=== PATIENT | female | born 1960 | race Caucasian/White ===

== ENCOUNTER 2019-03-07 01:30 | Outpatient (CLI) | payer BC, SELFPAY ==
[2019-03-07 10:07] LABS: Anion Gap 10.4 mmol/L (3-11); BUN 19 mg/dL (7-18); CO2 27.6 mmol/L (21.0-32.0); CREATININE 0.71 mg/dL (0.55-1.02); Calcium 8.5 mg/dL (8.5-10.1); Calculated LDL 118 mg/dL; Chloride 107 mmol/L (98-107); Cholesterol 193 mg/dL (50-200); Glucose 88 mg/dL (70-100); HDL Cholesterol 68 mg/dL (40-60); Potassium 3.9 mmol/L (3.5-5.1); Sodium 145 mmol/L (136-145); Triglyceride 37 mg/dL (30-150)
== END 2019-03-07 01:50 ==
PROVIDERS: PCP Family Medicine; Visit Provider Family Medicine
DX: Z00.00 Encounter for general adult medical examination without abnormal findings (principal); Z13.220 Encounter for screening for lipoid disorders; Z13.228 Encounter for screening for other metabolic disorders
CPT/HCPCS: 36415; 80048; 80061; 83721

== ENCOUNTER 2019-04-04 00:23 | Outpatient (CLI) | payer BC, SELFPAY ==
--- NOTE | 2019-04-04 07:31 | DI.MAMMO_ITS ---
SYMPTOM/DIAGNOSIS: SCREENING Z12.31 BILATERAL SCREENING MAMMOGRAM: Mammograms were interpreted according to the usual protocol including computer analysis with CAD system, tomosynthesis and C view imaging. Comparison is made with exams from 2013 through 2015. The breasts are composed of heterogeneously dense fibroglandular densities, breast density category C. No suspicious masses or suspicious microcalcifications are seen. There has been no significant change. IMPRESSION: Category 1, negative mammogram. Yearly screening mammography is recommended. Breast density category C. SA ASSESSMENT OF FINDINGS: Negative. Category 1. Patient will receive a letter notifying them of these results. Bi-RADS category C. The breasts are heterogeneously dense, which may obscure small masses.
== END 2019-04-04 00:43 ==
PROVIDERS: PCP Family Medicine; Visit Provider Family Medicine
DX: Z12.31 Encounter for screening mammogram for malignant neoplasm of breast (principal)
CPT/HCPCS: 77063; 77067

== ENCOUNTER 2020-04-08 02:13 | Outpatient (CLI) | payer BC, SELFPAY ==
--- NOTE | 2020-04-08 06:45 | DI.MAMMO_ITS ---
EXAM: MG MAMMO SCREENING CLINICAL HISTORY: screening, Z12.39 TECHNIQUE: Bilateral full field digital CC and MLO mammographic images were obtained with 3D tomosyn thesis and utilizing computer aided detection (CAD). COMPARISON: Available for comparison. FINDINGS: Masses/Architectural Distortion: None seen. Microcalcifications: No suspicious pleomorphic-type are seen. Skin Thickening/Nipple Retraction: None. IMPRESSION: 1. No significant interval change with no specific features of malignancy noted. 2. Unless there is more urgent need, screening mammography is recommended, as per [place] [employer] guidelines. BI-RADS Category 1 - Negative Breast Density - Category C - Heterogeneously dense The mammogram demonstrates the patient's breast tissue is dense. Dense breast tissue is very common a nd is not abnormal but dense breast tissue can make it harder to find cancer on a mammogram. Also, de nse breast tissue may increase their breast cancer risk. This information about the result of the [facility] mogram report was provided to the patient to raise their awareness. Use this report when you speak wi th the patient about their risks for breast cancer, which includes their family history. At that time , you may recommend for more screening tests (Ultrasound or MRI) as they might be useful based on the ir risk. A negative radiographic report should not delay biopsy if a dominant or clinically suspicious mass is present. Up to ten percent of cancers are not identified on mammography. A negative report may reinforce clinical impression. Adenosis and dense breasts may obscure an underlying neoplasm. False positive reports average 6 to 10%. Patient will receive a letter notifying them of these results.
== END 2020-04-08 02:33 ==
PROVIDERS: PCP Family Medicine; Visit Provider Family Medicine
DX: Z12.31 Encounter for screening mammogram for malignant neoplasm of breast (principal); R92.2 Inconclusive mammogram
CPT/HCPCS: 77063; 77067

== ENCOUNTER 2020-11-13 17:55 | Outpatient (CLI) | payer OTHER, SELFPAY ==
--- NOTE | 2020-11-13 13:45 | DI.RAD_ITS ---
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 TECHNIQUE: 2D digital imaging was performed. COMPARISON: No exams were available for comparison FINDINGS: BONES: No acute fracture is present. No bony destructive lesion is seen. Bones appear osteopenic. En thesophyte at the Achilles insertion on the calcaneus. JOINTS: No dislocation present. No significant degenerative changes. SOFT TISSUE: Normal. No plantar fascial calcification or other soft tissue calcification is seen. IMPRESSION: Spurring at the Achilles insertion. No evidence of plantar fascial calcification or plantar calcanea l spur. DATA REPOSITORY: RADIATION DOSE DELIVERED:
== END 2020-11-13 18:15 ==
PROVIDERS: PCP Nurse Practitioner Family; Visit Provider Emergency Medicine
DX: M79.671 Pain in right foot (principal); M72.2 Plantar fascial fibromatosis; M77.31 Calcaneal spur, right foot; M85.88 Other specified disorders of bone density and structure, other site
CPT/HCPCS: 73630

== ENCOUNTER 2021-02-19 02:13 | Outpatient (CLI) | payer OTHER, SELFPAY ==
--- NOTE | 2021-02-19 09:45 | DI.DEXA_ITS ---
Exam(s) XR DEXA BONE DENSITY W/WO MINDY EXAM: XR DEXA BONE DENSITY W/WO MINDY CLINICAL HISTORY: osteopenia,M85.80 TECHNIQUE: Routine DEXA evaluation of the lumbar spine, hip, or forearm. COMPARISON: No exams were available for comparison FINDINGS: Performed on a Hologic unit. Lateral image: No compression fracture evident. Lumbar Spine total T-score: -2.3 Hip total T-score:-1.2 Independent reading at the femoral neck yields a T-score of minus 1.3 Forearm total T-score: -3.2 IMPRESSION: Bone mineral density measures in the osteopenia range, bordering on osteoporosis. Fracture risk is m oderate-high. Note: Any spine fracture indicates 5x risk for subsequent spine fracture and 2x risk for subsequent h ip fracture. World Health Organization criteria for BMD interpretation classify patients: Normal...... T- Score at or above -1.0 Osteopenic... T- Score between -1.0 and -2.5 Osteoporosis... T-Score at or below -2.5
== END 2021-02-19 02:33 ==
PROVIDERS: PCP Nurse Practitioner Family; Visit Provider Emergency Medicine
DX: M85.80 Other specified disorders of bone density and structure, unspecified site (principal)
CPT/HCPCS: 77080

== ENCOUNTER 2021-03-12 09:19 | Outpatient (CLI) | payer OTHER, SELFPAY ==
--- NOTE | 2021-03-12 14:14 | DI.US_ITS ---
APPROVED REPORT EXAM: Comprehensive 2D, Doppler, and color-flow Echocardiogram Patient Location: Out-Patient Engagement Manager: Pamela Cope RDCS (AE) Indications: Bicuspid aortic valve Other Information Study Quality: Adequate Conclusion Left Ventricle : The left ventricle is normal size. The left ventricular systolic function is normal. The left ventricular ejection fraction is within the normal range. There is normal LV segmental wall motion. The left ventricular diastolic function is normal. LVEF is 60%. Right Ventricle : Right ventricle is not well visualized. Right ventricle is grossly normal in size. Right ventricular systolic function is grossly normal. The RVSP is 14.9mmHg. Aortic Valve : Aortic valve is not well visualized but known to be bicuspid. No aortic regurgitation is present. There is no aortic valvular stenosis. Great Vessels : The aortic root is normal in size. The ascending aorta is mildly dilated. Aortic arch is normal in caliber. IVC is normal in size and collapses >50% with inspiration. Please see remainder of study for further details. Wall motion Left Ventricle The left ventricle is normal size. The left ventricular systolic function is normal. The left ventric ular ejection fraction is within the normal range. There is normal left ventricular wall thickness. T here is normal LV segmental wall motion. The left ventricular diastolic function is normal. There is no ventricular septal defect visualized. LVEF is 60%. Right Ventricle Right ventricle is not well visualized. Right ventricle is grossly normal in size. Right ventricular systolic function is grossly normal. The RVSP is 14.9mmHg. Atria The left atrium size is normal. The right atrium size is normal. The interatrial septum is intact wit h no evidence for an atrial septal defect. Aortic Valve Aortic valve is not well visualized but known to be bicuspid. There is no aortic valvular stenosis. N o aortic regurgitation is present. Mitral Valve Mild mitral annular calcification. No evidence of mitral valve stenosis. Trace mitral regurgitation. Tricuspid Valve The tricuspid valve is normal in structure. There is no tricuspid valve stenosis. Trace tricuspid reg urgitation. Pulmonic Valve The pulmonary valve is normal in structure. There is no pulmonic valvular stenosis. There is no pulmo jany valvular regurgitation. Great Vessels The aortic root is normal in size. The ascending aorta is mildly dilated. Aortic arch is normal in ca liber. IVC is normal in size and collapses >50% with inspiration. Pericardium There is no pericardial effusion. 2D Dimensions IVSD d PLAX 0.85 cm F: 0.6-1.0 LV Vol A2C d MOD 77.9 mL LVPW d PLAX 0.85 cm F: 0.6 - 1.0 LV Vol A4C d MOD 73.2 mL LVID d PLAX 4.46 cm F: 3.8 - 5.2 LA vol/ BSA A4C s A-L 12.4 mL/m2 LVDs 3.10 cm F: 2.2 - 3.5 LA Area A4C s MOD 10.60 cm2 Ao Root d 3.14 cm F: 2.7 - 3.3 LV EF A4C MOD 60.4 % RA Area A4C 8.95 cm2 LV EF A2C MOD 60.1 % RA Vol/ BSA A4C s A-L 10.9 mL/m2 LV EF Biplane MOD 60.7 % Ao Asc Diam d 3.66 cm F: 2.3 - 3.1 SV 46.21 mL LV EF Teichholz 57.0 % SV Index 27.01 mL/m2 LVEF (Burns's) 60.70 % F: 54 - 74 LV Volume 60.31 mL F: 46 - 106 LV Volume Index 35.26 mL/m2 F: 29 - 61 LV Vol Biplane MOD 76.1 mL FS 29.70 % M-Mode TAPSE 1.95 cm (M/F) >1.7 LV Diastology MV E' medial 0.089 (>0.07 m/s) E/A Ratio 1.1 LV E/e MED 8.45 (<14) MV E Vmax 0.75 (0.4-1.3 m/s) MV E' lateral 0.100 (>0.1 m/s) MV A Vmax 0.70 (0.4-1.3 m/s) LV E/e LAT 7.50 (<14) MV E/A Ratio 1.01 MV E/E' medial 8.46 MV E/E' lateral 7.50 Aortic Valve LVOT Area 2.88 cm2 AoV Area Vmax 1.34 cm2 LVOT Vmax 0.86 m/s AoV Area/ BSA (Vmax) 0.78 cm2/m2 LVOT Mean Bobby. 0.66 m/s MEY Mean Bobby. 1.24 cm2 LVOT Peak Grad 2.9 mmHg MEY Mean Bobby. Index 0.73 cm2/m2 LVOT Mean Grad 1.9 mmHg LVOT VTI 0.167 m LVOT Diam s 1.90 cm AoV Vmax 1.85 m/s Velocity Ratio 0.46 AoV Mean Bobby. 1.53 m/s AoV Peak Grad 13.6 mmHg LVOT SV 48.12 mL AoV Mean Grad 9.7 mmHg AoV VTI 0.394 m AoV Area VTI 1.22 cm2 AoV Area/ BSA (VTI) 0.71 cm/m2 Mitral Valve MV DT 218 (160-240 msec) MV PHT 63 msec MV Area PHT 3.48 cm2 MV VTI 0.302 m MV Area VTI 1.59 (4.0-6.0 cm2) Pulmonary Valve PV Vmax 0.96 (0.5-1.5 m/s) RVOT Peak Gr. 2.57 mmHg PV Peak Grad 3.7 mmHg RVOT Mean Gr. 1.20 mmHg PV Mean Grad 1.9 mmHg RVOT VTI 0.180 m PV VTI 0.190 m RVOT Vmax 0.80 m/s Tricuspid Valve TR Peak Grad 11.8 mmHg TR Vmax 1.72 m/s RA Pressure 3.00 mmHg RVSP (TR) 14.9 mmHg
== END 2021-03-12 09:39 ==
PROVIDERS: PCP Nurse Practitioner Family; Visit Provider Nurse Practitioner Family
DX: Q23.1 Congenital insufficiency of aortic valve (principal); I77.810 Thoracic aortic ectasia
CPT/HCPCS: 93306

== ENCOUNTER 2021-03-13 04:43 | Outpatient (CLI) | payer OTHER, SELFPAY ==
[2021-03-13 07:59] LABS: Hemoglobin A1C 5.5 % (<5.7)
[2021-03-13 08:55] LABS: Anion Gap 8.4 mmol/L (3-11); BUN 19 mg/dL (7-18); CO2 28.6 mmol/L (21.0-32.0); CREATININE 0.7 mg/dL (0.55-1.02); Calcium 8.8 mg/dL (8.5-10.1); Calculated LDL 128 mg/dL (<100); Chloride 106 mmol/L (98-107); Cholesterol 203 mg/dL (<200); Glucose 88 mg/dL (74-106); HDL Cholesterol 57 mg/dL (40-60); Potassium 3.9 mmol/L (3.5-5.1); Sodium 143 mmol/L (136-145); Triglyceride 90 mg/dL (<150)
[2021-03-13 09:17] LABS: Vitamin D 25 Total 25.9 ng/mL (30-100)
== END 2021-03-13 04:44 | disposition home or self-care (01) ==
LOC: LBO 04:43
PROVIDERS: PCP Nurse Practitioner Family; Visit Provider Nurse Practitioner Family
DX: E78.5 Hyperlipidemia, unspecified (principal); M85.88 Other specified disorders of bone density and structure, other site; R79.89 Other specified abnormal findings of blood chemistry
CPT/HCPCS: 36415; 80048; 80061; 82306; 83036

== ENCOUNTER 2021-03-31 11:06 | Outpatient (CLI) | payer OTHER, SELFPAY ==
--- NOTE | 2021-03-31 11:00 | RT.EKG_ITS ---
APPROVED REPORT Exam: Resting ECG Reason for Exam: bicuspid aortic valve Patient Location: O HR:74 bpm ECG Measurements Heart Rate 74 AXIS WV 164 P 35 QRSd 100 QRS 38 QT 387 T 15 QTc 430 Conclusion Sinus rhythm...normal P axis, V-rate 50- 99 Normal Electrocardiogram
== END 2021-03-31 11:07 | disposition home or self-care (01) ==
LOC: DI.CARD 11:09
PROVIDERS: PCP Nurse Practitioner Family; Visit Provider Internal Medicine Cardiovascular Disease
DX: Q23.1 Congenital insufficiency of aortic valve (principal)
CPT/HCPCS: 93010

== ENCOUNTER 2021-04-09 01:56 | Outpatient (CLI) | payer OTHER, SELFPAY ==
--- NOTE | 2021-04-09 06:45 | DI.MAMMO_ITS ---
Exam(s) MAMMO SCREENING EXAM: MAMMO SCREENING CLINICAL HISTORY: screening,z12.39 TECHNIQUE: Bilateral full field digital CC and MLO mammographic images were obtained with 3D tomosyn thesis and utilizing computer aided detection (CAD). COMPARISON: Available for comparison. FINDINGS: Masses/Architectural Distortion: None seen. Microcalcifications: No suspicious pleomorphic-type are seen. Skin Thickening/Nipple Retraction: None. IMPRESSION: 1. No significant interval change with no specific features of malignancy noted. 2. Unless there is more urgent need, screening mammography is recommended, as per [place] [employer] guidelines. BI-RADS Category 1 - Negative Breast Density - Category B - Scattered areas of fibroglandular density Breast density category C or D implies that the patient has dense breast tissue. Dense breast tissue is very common and is not abnormal but dense breast tissue can make it harder to find cancer on a ma mmogram. Also, dense breast tissue may increase their breast cancer risk. This information about the result of the mammogram report was provided to the patient to raise their awareness. Use this report when you speak with the patient about their risks for breast cancer, which includes their family hist ory. At that time, you may recommend for more screening tests (Ultrasound or MRI) as they might be us eful based on their risk. A negative radiographic report should not delay biopsy if a dominant or clinically suspicious mass is present. Up to ten percent of cancers are not identified on mammography. A negative report may reinforce clinical impression. Adenosis and dense breasts may obscure an underlying neoplasm. False positive reports average 6 to 10%. Patient will receive a letter notifying them of these results.
== END 2021-04-09 02:16 ==
PROVIDERS: PCP Nurse Practitioner Family; Visit Provider Nurse Practitioner Family
DX: Z12.31 Encounter for screening mammogram for malignant neoplasm of breast (principal)
CPT/HCPCS: 77063; 77067

== ENCOUNTER → 2022-04-10 00:24 | Outpatient (CLI) | payer OTHER, SELFPAY ==
--- OUTSIDE RECORDS SUMMARY | 2022-04-10 00:26 | XMS_ITS | Encounter Summary ---
:1960 Author Organization [place] [address] Care Team Providers Name Role Phone Pooja Quevedo MD Primary Care Provider Reason for Visit Reason Comments Skin Check Encounter Details Date Type Department Care Team Description 09/23/2011 Office Visit Dermatology Pedro Latif, Family history of malignant melanoma (Primary Dx); [address] [place], [place] DERMATOLOGY [address] [place] [address] [phone] (Wo rk) Social History Tobacco Use Types Packs/Day Years Used Date Never Smoker Sex Assigned at Date Recorded Not on file documented as of this encounter Progress Notes Pedro Latif MD - 09/23/2011 5:29 PM EST Problem: 1. Mole check. 2. Family history of superficial melanoma recently in her father who is alive and well. 3. History of BCCa(s) in both mother and father. Kely follows up after last being seen in 2006. She has been doing well. Her father was recently diagnosed with melanoma and so she is referred today for another skin check. I last saw her in 08/2006. The patient is of almost purely [place] ethnic descent but does tend to burn relatively easily in the summer months. Physical examination reveals a brown eyed, brown haired 51-year-old woman who has benign appearing ephelides and solar lentigos over the upper shoulders. She has several compound versus intradermal nevi one on the left flank. She has otherwise mostly junctional melanocytic nevi over the arms and legs. Examination of the head, neck, chest, back, hands, arms, forearms, thighs and calves is otherwise benign. Assessment & Plan: Benign skin examination. a. Discussed recognition of melanoma with patient. b. Reinforced sun avoidance precautions. c. Patient given informational brochure on skin cancer and discussed the three basic types of skin cancer. d. RTC on a p.r.n. basis. Copy: Pooja Quevedo MD documented in this encounter Plan of Treatment Not on filedocumented as of this encounter Visit Diagnoses Diagnosis Family history of malignant melanoma - P rimary Family history of other specified malign ant neoplasm Nevus Benign neoplasm of skin, site unspecifie d documented in this encounter Care Teams Cake Inspector Relationship Specialty Start Date End Date Pooja Quevedo MD PCP - General 07/01/10 11/14/17 [address] [place] [address] documented as of this encounter
--- OUTSIDE RECORDS SUMMARY | 2022-04-10 00:26 | XMS_ITS | Clinical Summary ---
:1960 Author Organization [facility] [place] [address] Care Team Providers Name Role Phone Julius King MD Primary Care Provider Allergies No known active allergies Medications Medication Sig Dispensed Refills Start Date End Date Status CIS Free Text Med - Calcium + D 0 07/07/20 06 Active multivitamin (THERAGRAN) tablet 0 07/07/20 06 Active ascorbic acid (VITAMIN C) 500 mg 0 006 Active tablet Active Problems Problem Noted Date Family history of malignant melanoma 09/23/2011 [place] 09/23/2011 Social History Tobacco Use Types Packs/Day Years Used Date Never Smoker Smokeless Tobacco: Never Used Sex Assigned at Date Recorded Not on file Plan of Treatment Health Maintenance Due Date Last Done Comments Covid-19 Vaccine (#1) 1964 HIV screen 1977 Hepatitis C Screening 1977 Tdap adult 1978 Tetanus vaccine 1978 HPV test 1989 PAP Smear 1989 Breast Cancer Share Decision Needed 1999 Colonoscopy 2004 Breast Cancer screening 2009 Zoster vaccine (1 of 2) 2009 Advance Directive 2014 Influenza (Flu) vaccine (1 of 1 - Influenza standard 04/09/2022 series) Advance Directives Documents on File Type Date Recorded Patient Proc Tech Explanati on Advance Directives and Living 10/07/2010 4:44 PM Will Care Teams Plsql Developer Relationship Specialty Start Date End Date Julius King MD PCP - General Family Medicine 11/15/[address] [place] [address]
--- OUTSIDE RECORDS SUMMARY | 2022-04-10 00:26 | XMS_ITS | Encounter Summary ---
:1960 Author Organization [facility] [place] [address] Care Team Providers Name Role Phone Julius King MD Primary Care Provider Reason for Visit Reason Comments Skin Check Encounter Details Date Type Department Care Team Description 11/15/2017 Office Visit Dermatology at [facility] Pedro Latif MD [address] [address] DERMATOLOGY [phone] [place], [place] [address] (Wo rk) Social History Tobacco Use Types Packs/Day Years Used Date Never Smoker Smokeless Tobacco: Never Used Sex Assigned at Date Recorded Not on file documented as of this encounter Progress Notes Pedro Latif MD - 11/15/2017 4:30 PM EDT Problem: Right medial calf lesion Kely is a 57-year-old woman who is referred today in consultation by Sushila Silver. For an extended period of time she has had a pigmented mole on her right medial calf. Apparently in recent months it is started to expand superiorly and inferiorly within nonpigmented erythematous advancing border. This is not bled or scabbed or crusted. Has not been sore. It is not pruritic I was contacted by Sushila Silver who sent me photos of this lesion, and so she referred in consultation for further evaluation and treatment. Physical examination reveals a 12 x 16 mm plaque with central pigmentation and a superiorly erythematous raised section on her right medial calf. There is no crust or scab. Patient is very fair skin with numerous freckles but otherwise has a benign examination of her face her back upper chest and hands arms forearms thighs and calves is benign Assessment and plan: Changing nevus right medial calf 1. Differential includes possible medical malignant melanoma in situ, superficial basal versus squamous cell carcinomas, possibly a seborrheic keratosis 2. Today after obtaining informed consent site was anesthetized and removed in its entirety with shave biopsy superficially, and submitted for pathologic analysis 3. Triple antibiotic ointment and bandage placed wound care supplies given will notify patient biopsy results when these are available in the next 4-5 days 4. Further treatment to be predicated on biopsy results Cc: NICKIE Guillen MD documented in this encounter Plan of Treatment Not on filedocumented as of this encounter Visit Diagnoses Diagnosis Nevus Benign neoplasm of skin, site unspecifie d documented in this encounter Care Teams Drafting Technician Relationship Specialty Start Date End Date Julius King MD PCP - General Family Medicine 11/15/[address] [place] [address] [address] [place] [address] documented as of this encounter
--- NOTE | 2022-04-10 08:30 | DI.MAMMO_ITS ---
Exam(s) MAMMO SCREENING EXAM: MAMMO SCREENING CLINICAL HISTORY: screening, Z12.39 TECHNIQUE: Mammograms were interpreted according to the usual protocol including computer analysis w Universal [employer] CAD system, tomosynthesis and C-view imaging. COMPARISON: FINDINGS: The breasts are of moderate density with fairly symmetrical distribution of fibroglandular tissue. N o dominant mass or clumped microcalcification is identified in either breast. The current examinatio n is compared with previous examinations including April 2021 and there has been no gross interva l change appearance comparison with the prior studies. IMPRESSION: No specific evidence of malignancy at this time. Routine screening examinations are suggested at yea rly intervals due to the family history of breast carcinoma. BI-RADS Category 1 - Negative Breast Density - Category B - Scattered areas of fibroglandular density
== END ==
PROVIDERS: PCP Nurse Practitioner Family; Visit Provider Nurse Practitioner
DX: Z12.31 Encounter for screening mammogram for malignant neoplasm of breast (principal); Z80.3 Family history of malignant neoplasm of breast
CPT/HCPCS: 77063; 77067

== ENCOUNTER 2023-03-12 11:49 | Outpatient (CLI) | payer OTHER, SELFPAY ==
--- NOTE | 2023-03-12 | DI.CT_ITS ---
Exam(s) CT ABDOMEN PELVIS W EXAM: CT ABDOMEN PELVIS W CLINICAL HISTORY: LLQ ABD PAIN, R10.32, ? DIVERTICULITIS. TECHNIQUE: Imaging Protocol: Axial computed tomography images with coronal and sagittal reformatted images were created and reviewed CONTRAST MATERIAL: Intravenous: Omnipaque-350 100cc Oral: None COMPARISON: No exams were available for comparison FINDINGS: VISUALIZED LUNG BASES: No nodules nor pleural effusions evident. ABDOMEN: There is no ascites. LIVER: There are no focal hepatic lesions evident. No dilated intrahepatic ducts. GALLBLADDER/BILIARY: There are gallstones evident in the gallbladder lumen. Also some hyperdense maxwell e. The gallbladder is not distended and does not appear to be edematous. CBD is not dilated. PANCREAS: No evidence of pancreatic mass nor dilatation of the pancreatic duct. SPLEEN: Spleen is not enlarged. No obvious intrasplenic lesions. Splenic and portal veins are paten t. ADRENALS: There are no significant adrenal masses. KIDNEYS:There are multiple benign cysts in both kidneys. The largest is in the right kidney and blair ures 2 cm. No solid renal masses. No calculi nor hydronephrosis.. ABDOMINAL AORTA: Abdominal aorta is not enlarged. LYMPH NODES:There is no retroperitoneal nor paraaortic adenopathy. ABDOMINAL WALL: No evidence of significant anterior abdominal wall nor inguinal hernia. GI: There is evidence of acute diverticulitis in the upper sigmoid. The culprit diverticulum is iden tified and is on the medial wall of the colon at this level. There is circumferential mural thickeni ng at this level and streaking in the adjacent fat. There is no abscess evident at this time. There is no fluid in the dependent aspect of the pelvis. There is no gas in the portal venous system. No evidence of intrahepatic abscess. PELVIS: GI: No evidence of appendicitis.Acute diverticulitis as described above. LYMPH NODES: There is no intrapelvic nor inguinal adenopathy. REPRODUCTIVE: Uterus is surgically absent. No abnormal adnexal masses. URINARY BLADDER: Unremarkable. Also no intraluminal gas to suggest fistulous communication to the si gmoid. OSSEOUS: No fractures and no significant osseous lesions. Degenerative anterolisthesis L4 upon L5. Also moderate disc space narrowing at this level. IMPRESSION: 1. Findings are consistent with significant acute sigmoid diverticulitis. There is abundant bowel ed jan at this level as well as perisigmoid streaking-phlegmonous. There is no abscess evident at this time. 2. Cholelithiasis incidentally noted. No evidence of acute cholecystitis. Biliary tree is not dilat ed. Report called by myself to referring physician 03/12/2023 3:50 p.m. RADIATION DOSE DELIVERED: 667.04mGy.cm Total DLP DATA REPOSITORY: All CT scans at this facility are submitted to the National Radiology Data Registry (NRDR) Dose Index Registry (DIR) with the [employer] (ACR). RADIATION OPTIMIZATION: All CT scans at this facility use at least one of these dose optimization te chniques: automated exposure control; mA and/or kV adjustment per patient size (includes targeted exa ms where dose is matched to clinical indication); or iterative reconstruction.
[2023-03-12 11:34] LABS: Abs Immature Grans 0.05 10^3/uL (0.0-0.06); Absolute Basophil Count 0.03 10^3/uL (0.0-0.2); Absolute Eosinophil Count 0.17 10^3/uL (0.0-0.7); Absolute Lymphocyte Count 2.37 10^3/uL (1.2-3.4); Absolute Monocyte Count 0.93 10^3/uL (0.1-0.8); Absolute Neutrophil Count 7.95 10^3/uL (1.2-6.7); Basophils % 0.3; Eosinophils % 1.5; HCT 40.4 % (36.0-46.0); HGB 13.1 g/dL (11.2-15.7); Immature Grans % 0.4; Lymphocytes % 20.6; MCH 28.5 pg (27.0-33.0); MCHC 32.4 % (32.0-36.0); MCV 88 fL (80-95); MPV 8.7 fL (8.0-11.0); Monocytes % 8.1; Neutrophils % 69.1; Platelet Count 190 10^3/uL (130-400); RBC 4.59 10^6/uL (3.93-5.22); RDW 12.9 % (11.7-14.6); RDW-SD 41.8 fL
[2023-03-12 12:11] LABS: ALT 21 U/L (14-59); AST 14 U/L (15-37); Albumin 3.6 g/dL (3.4-5.0); Alkaline Phosphatase 115 U/L (46-116); Anion Gap 9.7 mmol/L (3-11); BUN 16 mg/dL (7-18); Bilirubin, Total 1.3 mg/dL (0.2-1.0); CO2 28.3 mmol/L (21.0-32.0); CREATININE 0.9 mg/dL (0.55-1.02); Calcium 9.3 mg/dL (8.5-10.1); Chloride 101 mmol/L (98-107); Estimated GFR 71.83 (mL/min/1.73m2); Glucose 90 mg/dL (74-106); Potassium 4.2 mmol/L (3.5-5.1); Sodium 139 mmol/L (136-145); Total Protein 7.8 g/dL (6.4-8.2)
[2023-03-12] MEDS: Barium Sulfate 2% W/V-Berry Smoothie 450 ML BTL 900 ML PO (12:11)
[2023-03-12] MEDS: Normal Saline - Diluent 50 ML VIAL IJ (14:30)
[2023-03-12] MEDS: Omnipaque 350 MG/ML 500 ML BTL-Imaging package IJ (14:30)
[2023-03-12] MEDS: Normal Saline Flush 10 ML SYR IVP (14:32)
== END 2023-03-12 11:50 | disposition home or self-care (01) ==
LOC: LBO 11:51
PROVIDERS: PCP Nurse Practitioner Family; Visit Provider Physician Assistant Medical
DX: R10.32 Left lower quadrant pain (principal)
CPT/HCPCS: 36415; 80053; 74177; 85025

== ENCOUNTER 2023-03-12 12:53 | Outpatient (REF) | payer OTHER, SELFPAY | END 2023-03-12 12:54 | disposition home or self-care (01) | LOC: LBN 12:53 | PROVIDERS: PCP Nurse Practitioner Family; Visit Provider Physician Assistant Medical | DX: R10.9 Unspecified abdominal pain (principal); R82.998 Other abnormal findings in urine | CPT/HCPCS: 87086 ==

== ENCOUNTER → 2023-05-18 01:10 | Outpatient (CLI) | payer OTHER, SELFPAY ==
--- NOTE | 2023-05-18 07:45 | DI.DEXA_ITS ---
Exam(s) XR DEXA BONE DENSITY W/WO MINDY EXAM: XR DEXA BONE DENSITY W/WO MINDY CLINICAL HISTORY: osteopenia,screening for osteoporosis in postmenopausal woman,z78.0 TECHNIQUE: COMPARISON: CR XR DEXA BONE DENSITY W/WO MINDY from 02/19/2021 FINDINGS: Lateral Spine Image: Unremarkable. No compression deformities identified. Left hip: Total T-Score: -1.0. This compares to -1.2 on the prior examination. Total Z-Score: 0.1 T- and Z-scores: Within normal limits. Lumbar Spine: Total T-Score: -2.4. This compares to -2.5 on the prior examination. Total Z-Score: -0.7 T- and Z-scores: Findings are consistent with osteopenia. Osteoporosis is seen in the L1 and L2 vert ebral bodies. IMPRESSION: Osteoporosis in the L1 and L2 vertebral bodies.
--- NOTE | 2023-05-18 07:45 | DI.MAMMO_ITS ---
Exam(s) MAMMO SCREENING EXAM: MAMMO SCREENING CLINICAL HISTORY: screening,z12.39 TECHNIQUE: Bilateral full field digital CC and MLO mammographic images were obtained with 3D tomosyn thesis and utilizing computer aided detection (CAD). COMPARISON: Available for comparison. FINDINGS: Masses/Architectural Distortion: None seen. Microcalcifications: No suspicious pleomorphic-type are seen. Skin Thickening/Nipple Retraction: None. IMPRESSION: 1. No significant interval change with no specific features of malignancy noted. 2. Unless there is more urgent need, screening mammography is recommended, as per [employer] guidelines. BI-RADS Category 1 - Negative Breast Density - Category B - Scattered areas of fibroglandular density Breast density category C or D implies that the patient has dense breast tissue. Dense breast tissue is very common and is not abnormal but dense breast tissue can make it harder to find cancer on a ma mmogram. Also, dense breast tissue may increase their breast cancer risk. This information about the result of the mammogram report was provided to the patient to raise their awareness. Use this report when you speak with the patient about their risks for breast cancer, which includes their family hist ory. At that time, you may recommend for more screening tests (Ultrasound or MRI) as they might be us eful based on their risk. A negative radiographic report should not delay biopsy if a dominant or clinically suspicious mass is present. Up to ten percent of cancers are not identified on mammography. A negative report may reinforce clinical impression. Adenosis and dense breasts may obscure an underlying neoplasm. False positive reports average 6 to 10%. Patient will receive a letter notifying them of these results.
== END ==
PROVIDERS: PCP Nurse Practitioner Family; Visit Provider Nurse Practitioner Family
DX: Z78.0 Asymptomatic menopausal state (principal); Z12.31 Encounter for screening mammogram for malignant neoplasm of breast; M81.0 Age-related osteoporosis without current pathological fracture
CPT/HCPCS: 77063; 77067; 77080

== ENCOUNTER 2023-05-28 11:37 | Day surgery (SDC) | payer OTHER, SELFPAY ==
--- NOTE | 2023-05-27 20:14 | W.PM.HP.N ---
Date of service: 05/28/23 Time of Service: : Assessment and Plan Assessment and plan (1) Screen for colon cancer: Status: Acute Assessment and plan: Esme looks very good today, and I do not see any contraindications to proceeding with screening colonoscopy. History of Present Illness History of Present Illness Chief Complaint: Screening colonoscopy Narrative: She is due for another screening colonoscopy. She is 62 years old, and she underwent colonoscopy in 2012. By her report, that was normal. In the interim, significant history includes multiple episodes of diverticulitis. PFSH All Active Problems (Updated 05/28/23 @ 13:22 by Lowell Motta MD) Screen for colon cancer (Acute) Osteoporosis (Chronic) Fosamax started 2022 Bicuspid aortic valve (Chronic) ECHO 2020 with no regurg or stenosis Hyperlipidemia (Chronic) Osteoporosis of forearm (Chronic) Osteopenia (Chronic) Plantar fascia syndrome (Chronic) Osteoarthritis of both knees (Chronic) Vitamin D deficiency (Chronic) Diverticulosis of colon (Chronic) Medical History Encounter for screening colonoscopy for [id number] patient Acute diverticulitis (~03/2023) Surgical History S/P FROILAN (total abdominal hysterectomy) Right ovary remains Family History Mother Breast cancer Postmenopausal Father , 93 Lymphoma Prostate cancer Kidney malignancy Skin cancer Brother Diabetes Brother No problems noted. Brother No problems noted. Brother No problems noted. Brother No problems noted. Sister Hypothyroidism Sister No problems noted. Maternal Grandfather No problems noted. Maternal Grandmother No problems noted. Paternal Grandfather No problems noted. Paternal Grandmother No problems noted. Daughter Celiac disease Social History Smoking/Tobacco Use Status: Never Second Hand Exposure: No Smoking risk assessment performed?: Yes Alcohol Intake: current Alcohol Intake frequency: holidays/special occasions only Alcohol type: wine Drug use: Never Substance use type: does not use Counseling provided: none Caregiver/Support person: No Household members: family Housing: house Communication Needs: None Do you need help understanding health information?: Never current occupation: Retired Pets and animals: Yes Pets and animals: cat(s) Sexually active: No Do you think of yourself as: straight/heterosexual Current gender identity: female What is your relationship status?: How often do you talk on the phone with friends or family?: three or more times per week How often do you get together with friends or relatives?: three or more times per week How often do you attend congregation or adventist services?: decline to answer Do you belong to any clubs or organized social groups?: yes Panel score (0-1 are the most socially isolated patients): 2 What type of physical activity do you participate in: other Details: Glider Duration: 30-45 minutes/day Frequency: 3-4 times per week Bing/Mormonism: Restoration Special bing needs: Yes (Last Rit) Seatbelt use: always Helmet use: No Drive intox or ride w/intox pile driver operator helper: No Do you feel safe at home: Yes Do you feel safe in your relationship?: Yes Meds Allergies and Home Medications Allergies Allergy/AdvReac Type Severity Reaction Status Date / Time No Known Allergies Allergy Verified 05/28/23 11:58 Home Medications Medication Instructions Recorded Confirmed Type multivitamin (Daily Multi-Vitamin 1 tab PO DAILY 04/07/23 05/28/23 History tablet) calcium carbonate 600 mg-vitamin 1 cap PO BID 05/07/23 05/28/23 History D3 12.5 mcg (500 unit) capsule (Calcium 600 with Vitamin D3) psyllium husk 3.4 gram/5.4 gram 1 tbsp PO DAILY 05/07/23 05/28/23 History oral powder (Metamucil) alendronate 70 mg tablet 70 mg PO QWEEK #15 tabs 05/27/23 05/28/23 Rx Exam Const General: cooperative, healthy appearing and not in acute distress Neck Neck: normal visual inspection, no lymphadenopathy and supple Thyroid: thyroid normal Resp Effort & Inspection: normal respiratory effort Auscultation: clear to auscultation bilaterally Cardio Jugular venous pressure: no JVD Rate: regular rate Rhythm: regular rhythm Heart Sounds: S1 normal and S2 normal GI Inspection: normal to inspection Palpation: soft, no guarding, no hernias and nontender Percussion: normal to percussion Auscultation: normal bowel sounds Neuro General: patient alert, patient awake and patient oriented x3 Psych Appearance: grossly normal Time Spent Time spent with Patient: <40 minutes Time was spent: preparing to see the patient(eg.review tests) and counseling the patient
--- NOTE | 2023-05-27 20:23 | W.PM.DSUDISC ---
Date of service: 05/28/23 Time of Service: 14:23 Discharge Plan Disposition Patient Disposition: Home Condition: Good Discharge Details Reason For Visit: Screening colonoscopy Attending Provider: Lowell Motta Primary Care Provider: Sushila Silver Home Meds and New Rx's Prescriptions: Continued multivitamin [Daily Multi-Vitamin] Tablet 1 tab PO DAILY Metamucil 3.4 gram/5.4 gram powder 1 tbsp PO DAILY Rx Instructions: mix into at least 8 oz of water or juice before administering calcium carbonate-vitamin D3 [Calcium 600 with Vitamin D3] 600 mg-12.5 mcg (500 unit) capsule 1 cap PO BID alendronate 70 mg tablet 70 mg PO QWEEK Qty: 15 3RF Discontinued polyethylene glycol 3350 17 gram/dose powder 238 g PO ONCE Qty: 238 0RF Rx Instructions: take per colonoscopy instructions bisacodyl [Dulcolax (bisacodyl)] 5 mg tablet,delayed release (DR/EC) 5 mg PO ONCE Qty: 4 0RF Rx Instructions: take per colonoscopy instructions Discharge Instructions Instructions: Diverticulosis (GEN), Diverticulosis Diet (GEN) Additional Instructions: Esme, we were able to finish your colonoscopy today without any difficulty. Aside from the diverticulosis, I did not see anything out of the ordinary. There were no polyps, tumors, or anything worrisome. In that regard, you will need another screening colonoscopy in 10 years. With regards to your actual diverticulosis, it extends from about 15 cm above your anus upwards to about 30 cm. There are only a few scattered diverticula beyond there. I have attached some general information here regarding diverticular disease and its typical management. If you have any questions at all at any point, please do not hesitate to get in touch. 1. If tolerated, consume a soft, low fiber diet for 1-2 days. 2. Do not drive, drink alcohol, operate machinery, make critical decisions, or do activities that require coordination or balance for 24 hours. 3. Because air was put into your colon during the procedure, expelling air from your rectum (passing gas or farting) is normal. 4. You may not have a bowel movement for 1-3 days because of the colonoscopy prep. This is normal. 5. Go directly to the emergency room if you notice any of the following: Develop chills (warm to touch), or if you have a thermometer and your temperature is above 101 Difficulty breathing or difficultly swallowing Persistent vomiting Severe abdominal pain, other than gas cramps Severe chest pain Black, tarry stools Any bleeding ? exceeding one tablespoon 6. Call your physician if the site where your intravenous was started becomes red, swollen, painful, and warm to touch. 7. Your physician has reviewed your pre-procedure medications. Please continue to take those medications as previously ordered. You will be given specific information/education regarding any changes to your medications before leaving. Activity:: Activity as Tolerated Diet:: As Tolerated Discharge Orders Discharge Orders: Discharge Order (Routine); Ordered 05/27/23 Ordered By: Lowell Motta DS: Diagnosis Discharge Diagnosis (1) Screen for colon cancer: Status: Acute Asessment and Plan: Negative screening colonoscopy
--- NOTE | 2023-05-27 20:24 | W.COLOREPORT ---
Date of service: 05/28/23 Time of Service: 14:25 Colonoscopy Report Date of procedure: 05/28/23 Pre-op diagnosis general: Screening colonoscopy Post-op diagnosis procedure note: other (Diverticulosis) Procedure: Colonoscopy Surgeon: Lowell Motta Anesthesia Type: General:No Airway Estimated blood loss (mL): 0 Pathology: none sent Complications: None Disposition: same day Indications: Esme is a 62-year-old woman is due for an updated screening colonoscopy. Prep: Miralax/Dulcolax Procedure Start Time: 13:46 Procedure End Time: 14:05 Retraction Time: 15 Findings: Diverticulosis Procedure Description: After the induction of monitored anesthetic care, and with the patient in left lateral decubitus position, I began by performing an external anorectal exam.? Perineum and skin were normal, as was the anal verge.? There was no evidence of external hemorrhoids.? Next, I performed a digital rectal exam.? I did not appreciate any abnormal findings.? Next, I advanced a colonoscope into the rectal vault.? I performed retroflexion.? This appeared normal.? Using insufflation, I then advanced the colonoscope beyond the rectal folds and into the sigmoid colon before advancing towards the cecum.? There was diverticulosis extending from about 15 cm above the anus up to about 30 cm. Diverticula were [place]. There was not much fecal retention. The true lumen was easy to maintain and navigate.? The scope was noted to be in the cecum by identification of the ileocecal valve and appendiceal orifice.? I then began withdrawing the colonoscope using repeated irrigation as necessary for full evaluation of the colonic mucosa. ?There were just a few scattered diverticula in the ascending and transverse colon. Once the scope was withdrawn to the level of the rectum, great care was taken to examine portions of the rectal folds.? [place] bowel prep score was 3, 3, 2 extending from right to left. finally, the scope was withdrawn and the patient was brought to the same-day surgery recovery unit as the anesthetic wore off. ?The findings and instructions were shared with the patient prior to discharge.
[2023-05-28 11:49] VITALS: BP 118/83; PULSE 103; RESP 19; TEMP 36.7; O2SAT 98
[2023-05-28] MEDS: Lactated Ringers 1,000 ML 80 ML IV (12:05)
--- NOTE | 2023-05-28 13:10 | W.ANESPRE ---
General Info Date of Service Date Performed: 05/28/23 Height: 5 ft 3 in Weight: 64 kg Body Mass Index (BMI): 25.0 Surgical Procedure: Operation Date: 05/28/23 12:50 Proposed Procedure Side Surgeon raji Motta MD Meds Allergies and Home Medications Allergies Allergy/AdvReac Type Severity Reaction Status Date / Time No Known Allergies Allergy Verified 05/28/23 11:58 Home Medication Medication Instructions Recorded multivitamin (Daily Multi-Vitamin 1 tab PO DAILY 04/07/23 tablet) calcium carbonate 600 mg-vitamin 1 cap PO BID 05/07/23 D3 12.5 mcg (500 unit) capsule (Calcium 600 with Vitamin D3) psyllium husk 3.4 gram/5.4 gram 1 tbsp PO DAILY 05/07/23 oral powder (Metamucil) alendronate 70 mg tablet 70 mg PO QWEEK #15 tabs 05/27/23 Current Visit Medications: Current Medications Generic Name Dose Route Start Last Admin Trade Name Freq PRN Reason Stop Dose Admin Hyoscyamine Sulfate 0.125 mg 05/27/23 20:30 Hyoscyamine 0.125 Mg Sl/Oral/Chew SL 06/26/23 20:29 DIRECTED PRN Ringer's Solution 1,000 mls @ 80 mls/hr 05/28/23 06:00 05/28/23 12:05 IV 06/26/23 23:59 80 mls/hr INFUSION ALYSON Administration IV Miscellaneous Supplies 1 each 05/28/23 06:00 Iv Access IV 06/26/23 23:59 DIRECTED ALYSON Ondansetron HCl 4 mg 05/27/23 20:30 Ondansetron 4 Mg/2 Ml Vial IVP 06/26/23 20:29 Q4H PRN PRN Nausea / Vomiting Sodium Chloride 0 ml 05/28/23 06:00 Normal Saline Flush 10 Ml Syr IV 06/26/23 23:59 PRN PRN Sodium Chloride 0 ml 05/28/23 06:00 Normal Saline 10 Ml Vial IJ 06/26/23 23:59 DIRECTED PRN Sterile Water 0 ml 05/28/23 06:00 Water,Injection,Sterile 10 Ml Vial IJ 06/26/23 23:59 DIRECTED PRN PFSH Active Problems Active Problems: Problem Status Onset Code Osteoporosis M81.0 Bicuspid aortic valve Q23.1 Hyperlipidemia E78.5 Osteoporosis of forearm M81.0 Osteopenia M85.80 Plantar fascia syndrome M72.2 Osteoarthritis of both knees M17.0 Vitamin D deficiency E55.9 Diverticulosis of colon K57.30 Medical History Medical History (Updated 05/28/23 @ 13:22 by Lowell Motta MD) Encounter for screening colonoscopy for [id number] patient Acute diverticulitis (~03/2023) Medical History Comments:: pt.'s daughter had hard time waking up from anesthesia, had hallucinations Surgical History Surgical History S/P FROILAN (total abdominal hysterectomy) Right ovary remains Tobacco Smoking/Tobacco Use Status: Never Passive smoking exposure: No Second hand exposure: No Alcohol Alcohol Intake: current Alcohol intake frequency: holidays/special occasions only Alcohol type: wine Substance Use Substance use: Never Substance use type: does not use Counseling provided: none Vital Signs and Lab Results Vital Signs Most Recent Vital Signs in EMR: Most Recent Vital Signs Temp Pulse Resp BP Pulse Ox 36.7 C 103 H 19 118/83 98 05/28/23 11:49 05/28/23 11:49 05/28/23 11:49 05/28/23 11:49 05/28/23 11:49 Lab Results Blood Type / Crossmatch: No Data to Display Complete Blood Count: No Data to Display Complete Metabolic Panel: No Data to Display Liver Function Panel: No Data to Display Coagulation Panel: No Data to Display Cardiac Panel: No Data to Display Arterial Blood Gas: No Data to Display Venous Blood Gas: No Data to Display Pancreas Panel: No Data to Display Thyroid Panel: No Data to Display Infectious Disease: No Data to Display Blood Cultures: No Data to Display Toxicology Panel: No Data to Display Imaging and Studies Imaging and Studies Study information below may be from another EMR and interpreted by another provider. Please see original notes in EMR for more complete details. EKG Summary: 03/31/2021: Exam: Resting ECG Reason for Exam: bicuspid aortic valve Patient Location: O HR:74 bpm ECG Measurements Heart Rate 74 AXIS VA 164 P 35 QRSd 100 QRS 38 QT 387 T15 QTc 430 Conclusion Sinus rhythm...normal P axis, V-rate 50- 99 Normal Electrocardiogram Echocardiogram Summary: 03/12/2021: Conclusion Left Ventricle : The left ventricle is normal size. The left ventricular systolic function is normal. The left ventricular ejection fraction is within the normal range. There is normal LV segmental wall motion. The left ventricular diastolic function is normal. LVEF is 60%. Right Ventricle : Right ventricle is not well visualized. Right ventricle is grossly normal in size. Right ventricular systolic function is grossly normal. The RVSP is 14.9mmHg. Aortic Valve : Aortic valve is not well visualized but known to be bicuspid. No aortic regurgitation is present. There is no aortic valvular stenosis. Great Vessels : The aortic root is normal in size. The ascending aorta is mildly dilated. Aortic arch is normal in caliber. IVC is normal in size and collapses >50% with inspiration. Anesthesia Assessment and Plan Anesthesia History Personal History: No History of Anesthesia Complications Family History: Other Exercise Tolerance Exercise Tolerance: Metabolic Equivalents>4 Pertinent Negatives Pertinent Negatives: No Symptoms of GERD, No Major Cardiovascular Symptoms or Complaints and No Major Pulmonary Symptoms or Complaints Cardiac & Pulmonary Exam Cardiac Exam: Normal S1/S2 Heart Sounds Pulmonary Exam: Clear Bilateral Breath Sounds Implantable Cardiac Device Does patient have a Pacemaker or an ICD?: No Airway Exam Known Difficult Airway: No Mallampati Class: 2 Mouth Opening: Normal (> 3cm) Thyromental Distance: Greater than 3 cm Neck Range of Motion: Full ROM Neck Circumference: Normal Teeth Condition: Normal Dentition ASA Classification ASA Score: ASA 2 Emergency Case?: No NPO Status NPO Status: NPO Clears >2 hours, Solids >8 hours Anesthesia Plan Resuscitation Status: Full Code Anesthesia Technique: General Anesthesia Airway Planned: Natural Airway Monitors Used: Standard Monitors
[2023-05-28 13:14] VITALS: BMI 25.0
[2023-05-28 14:13] VITALS: BP 123/76; PULSE 74; RESP 18; TEMP 36.5; O2SAT 100
[2023-05-28 14:45] VITALS: BP 111/81; PULSE 63; RESP 18; TEMP 36.6; O2SAT 100
--- NOTE | 2023-05-28 15:09 | W.ANESPOSTOP ---
Postoperative Evaluation Date, Time and Location Date Performed: 05/28/23 Time Performed: 14:24 Patient Location: Day Surgery Unit Vital Signs Most Recent Imported Vital Signs: Most Recent Vital Signs Temp Pulse Resp BP Pulse Ox 36.5 C 74 18 123/76 100 05/28/23 14:13 05/28/23 14:13 05/28/23 14:13 05/28/23 14:13 05/28/23 14:13 Pain Score Most Recent Pain Score: Most Recent Pain Score Pain Level 0 05/28/23 14:13 Assessment Mental Status: Awake (Alert & Oriented to Patient Baseline) Airway and Respiratory Function: Patent airway with normal (patient baseline) respiratory exam Cardiovascular Function: Hemodynamically Stable Hydration Status: Adequately Hydrated Nausea & Vomiting: No Nausea or Vomiting Pain: Pt. Denies Any Pain Peripheral Nerve Block: Patient did not receive a nerve block
== END 2023-05-28 15:32 | disposition home or self-care (01) ==
LOC: SUR 11:38
PROVIDERS: PCP Nurse Practitioner Family; Visit Provider Surgery
PROC: 0DJD8ZZ Inspection of Lower Intestinal Tract, Via Natural or Artificial Opening Endoscopic (ICD-10-PCS; CPT 45378; principal; 2023-05-28 12:45)
DX: Z12.11 Encounter for screening for malignant neoplasm of colon (principal); K57.30 Diverticulosis of large intestine without perforation or abscess without bleeding
CPT/HCPCS: 45378; J0360

== ENCOUNTER 2024-04-19 02:13 | Outpatient (CLI) | payer OTHER, SELFPAY ==
--- NOTE | 2024-04-19 12:30 | DI.US_ITS ---
APPROVED REPORT EXAM: Comprehensive 2D, Doppler, and color-flow Echocardiogram Patient Location: Out-Patient Event Security Officer: Pamela Cope RDCS (AE) Indications: Bicuspid aortic valve with mild stenosis Other Information Study Quality: Fair. Technically limited study due to body habitus. Conclusion Normal left ventricular wall thickness and chamber size. Ejection fraction is 60%. Wall motion is n ormal Right ventricle is not well-visualized Both atria are normal in size Aortic valve is mildly calcified and bicuspid. There is mild aortic stenosis with a mean gradient of 12 mmHg. There is no aortic regurgitation There is no additional structural or hemodynamically significant valvular disease Estimated right ventricular systolic pressure is 21 mmHg Ascending aorta measures 3.64 cm Wall motion Left Ventricle The left ventricle is normal size. The left ventricular systolic function is normal. The left ventric ular ejection fraction is within the normal range. There is normal left ventricular wall thickness. T here is normal LV segmental wall motion. There is no ventricular septal defect visualized. LVEF is 60 %. Right Ventricle Right ventricle is not well visualized. Right ventricular systolic function could not be assessed. Atria The left atrium size is normal. The right atrium size is normal. The interatrial septum is intact wit h no evidence for an atrial septal defect. Aortic Valve Aortic valve is calcified. Aortic valve is bicuspid. Mean gradient is 12 mmHg No aortic regurgitation is present. Mitral Valve The mitral valve is normal in structure. No evidence of mitral valve stenosis. Trace mitral regurgita tion. Tricuspid Valve The tricuspid valve is normal in structure. There is no tricuspid valve stenosis. Trace to mild tricu spid regurgitation. The RVSP is 20.7 mmHg. Pulmonic Valve The pulmonary valve is normal in structure. There is no pulmonic valvular stenosis. There is no pulmo jany valvular regurgitation. Great Vessels The aortic root is normal in size. The ascending aorta is mildly dilated. Aortic arch is not well vis ualized. IVC is normal in size and collapses >50% with inspiration. Pericardium There is no pericardial effusion. 2D Dimensions IVSD d PLAX 0.70 cm F: 0.6-1.0 Ao Root d 3.07 cm F: 2.7 - 3.3 LVPW d PLAX 0.71 cm F: 0.6 - 1.0 Ao Asc Diam d 3.64 cm F: 2.3 - 3.1 LVID d PLAX 4.44 cm F: 3.8 - 5.2 LVDs 3.09 cm F: 2.2 - 3.5 LV EF Teichholz 58.0 % FS 30.40 % LV EDV (Teich) 89.8 mL LV ESV (Teich) 37.7 mL Auto EF LV EDV A4C 86.7 mL LV EDV A2C 82.4 mL LV EDV BP 85.6 mL LV ESV A4C 34.7 mL LV ESV A2C 35.1 mL LV ESV BP 34.9 mL LVEF(%) A4C 60.0 % LVEF(%) A2C 57.4 % LVEF(%) BP 59.3 % LV SV A4C 52.0 ml LV SV A2C 47.3 ml LV SV BP 50.7 ml LV CO A4C 3.1 L/min LV CO A2C 2.8 L/min LV CO BP 3.0 L/min HR A4C 60.28 BPM HR A2C 60.18 BPM LV EDV Index (BP) LA Volume LA Length A4C 3.2 cm LA Length A2C 3.9 cm LA Area A4C s 9.15 cm2 LA Area A2C s 10.74 cm2 LA Vol A4C A-L 22.22 mL LA Vol A2C A-L 24.99 mL LA Vol Biplane A-L 26.1 mL LA Vol/BSA A4C A-L LA Vol/BSA A2C A-L LA Vol/BSA BP A-L 15.9 mL/m2 LA Vol A4C MOD 18.9 mL LA Vol A2C MOD 24.3 mL LA Vol BP MOD 23.6 mL LV Diastology MV E' medial 0.092 (>0.07 m/s) MV E Vmax 0.73 (0.4-1.3 m/s) MV E/E' MED 7.95 (<14) MV A Vmax 0.80 (0.4-1.3 m/s) MV E' lateral 0.067 (>0.1 m/s) E/A Ratio 0.9 MV E/E' LAT 10.92 (<14) MV E' Average 0.079 m/s MV E/E'(average) 9.20 Aortic Valve AoV Vmax 2.36 m/s LVOT Vmax 0.67 m/s AoV Peak Grad 22.3 mmHg LVOT Peak Grad 1.8 mmHg AoV Area (Vmax) 0.91 cm2 LVOT VTI 0.150 m AoV VTI 0.581 m LVOT Mean Grad 1.0 mmHg AoV Mean Bobby. 1.78 m/s LVOT SV 48.27 mL AoV Mean Grad 13.7 mmHg LVOT Diam s 2.00 cm AoV Area (VTI) 0.83 cm2 AV Regurg Peak Gr. 22.26 mmHg Velocity Ratio 0.28 Mitral Valve MV DT 263 (160-240 msec) MV Vmax TIPS 0.85 m/s MV Mean Grad 1.3 (<2mmHg) MV VTI 0.286 m Pulmonary Valve PV Vmax 0.74 (0.5-1.5 m/s) RVOT Vmax 0.77 m/s PV Peak Grad 2.2 mmHg RVOT Peak Gr. 2.4 mmHg PV Mean Bobby 0.56 m/s RVOT VTI 0.180 m PV Mean Grad 1.3 mmHg RVOT Mean Gr. 1.4 mmHg Tricuspid Valve RA Pressure 3.00 mmHg TR Vmax 2.10 m/s TV S' 0.10 m/s TR Peak Grad 17.6 mmHg RVSP (TR) 20.7 mmHg
== END 2024-04-19 02:33 ==
LOC: DI 02:13
PROVIDERS: PCP Nurse Practitioner Family; Visit Provider Internal Medicine Cardiovascular Disease
DX: I35.0 Nonrheumatic aortic (valve) stenosis (principal); Q23.1 Congenital insufficiency of aortic valve
CPT/HCPCS: 93306

== ENCOUNTER 2024-06-07 00:52 | Outpatient (CLI) | payer OTHER, SELFPAY ==
--- NOTE | 2024-06-07 08:58 | DI.MAMMO_ITS ---
Exam(s) MAMMO SCREENING EXAM: MAMMO SCREENING CLINICAL HISTORY: screening,Z12.39 TECHNIQUE: Mammograms were interpreted according to the usual protocol including computer analysis w [employer] CAD system, tomosynthesis and C-view imaging. COMPARISON: 2014 through 2022 FINDINGS: The breasts are composed of scattered fibroglandular densities, Breast Density category B. No suspicious masses or suspicious microcalcifications are seen. No skin thickening or abnormal axillary lymph nodes are seen. There has been no significant change from prior exams. IMPRESSION: BI-RADS Category 1, Negative mammogram Yearly screening mammography is recommended. Breast Density - Category B, scattered fibroglandular densities. A negative radiographic report should not delay biopsy if a dominant or clinically suspicious mass is present. Up to ten percent of cancers are not identified on mammography. A negative report may reinforce clinical impression. Adenosis and dense breasts may obscure an underlying neoplasm. False positive reports average 6 to 10%. Patient will receive a letter notifying them of these results.
== END 2024-06-07 01:12 ==
LOC: DI 00:52
PROVIDERS: PCP Nurse Practitioner Family; Visit Provider Nurse Practitioner Family
DX: Z12.31 Encounter for screening mammogram for malignant neoplasm of breast (principal)
CPT/HCPCS: 77063; 77067

== ENCOUNTER 2024-06-09 02:04 | Outpatient (CLI) | payer OTHER, SELFPAY ==
[2024-06-09 11:44] LABS: Anion Gap 9.9 mmol/L (3-11); BUN 18 mg/dL (7-18); CO2 27.1 mmol/L (21.0-32.0); CREATININE 0.9 mg/dL (0.55-1.02); Calcium 8.9 mg/dL (8.5-10.1); Calculated LDL 100 mg/dL (<100); Chloride 108 mmol/L (98-107); Cholesterol 186 mg/dL (<200); Estimated GFR 71.39 (mL/min/1.73m2); Glucose 120 mg/dL (74-106); HDL Cholesterol 73 mg/dL (40-60); Potassium 3.8 mmol/L (3.5-5.1); Sodium 145 mmol/L (136-145); TSH (W/Ref FT4) 0.79 uIU/mL (0.36-3.74); Triglyceride 66 mg/dL (<150); Vitamin D 25 Total 41.2 ng/mL (30-100)
[2024-06-09 19:34] LABS: Hepatitis C Ab w Rflx HCV PCR Negative (Negative)
[2024-06-09 19:40] LABS: HBs Antibody, Quant <3.1 mIU/mL (See Note); Hep B Surface Ab Negative (See Note); Hepatitis B Core Antibody Negative (Negative); Hepatitis B Surface Antigen Negative (Negative)
[2024-06-09 19:41] LABS: HIV-1/2 Ag & Ab Screen Negative (Negative)
== END 2024-06-09 02:05 | disposition home or self-care (01) ==
LOC: LBO 02:04
PROVIDERS: PCP Nurse Practitioner Family; Visit Provider Nurse Practitioner Family
DX: Z00.00 Encounter for general adult medical examination without abnormal findings (principal); E55.9 Vitamin D deficiency, unspecified; M81.0 Age-related osteoporosis without current pathological fracture; Z11.59 Encounter for screening for other viral diseases; Z11.4 Encounter for screening for human immunodeficiency virus [HIV]
CPT/HCPCS: 36415; 80048; 80061; 82306; 86704; 86706; 86803; 87340; 87389; 84443

== ENCOUNTER 2024-06-27 11:04 | Emergency (ER) | payer OTHER, SELFPAY ==
[2024-06-27 11:08] VITALS: BP 117/75; PULSE 81; RESP 18; TEMP 36.6; O2SAT 98
[2024-06-27 12:00] VITALS: BP 117/75; PULSE 81; RESP 16; TEMP 36.6; O2SAT 100
--- NOTE | 2024-06-27 12:08 | ED.GENADUL_ITS ---
Discharge Plan Disposition Patient Disposition: Home Condition: Good Discharge Details Clinical Impression: Diverticulitis Primary Care Provider: Sushila Silver ED Provider: Chuyita Da Silva Home Meds and New Rx's Prescriptions: New ondansetron 4 mg tablet,disintegrating 4 mg PO Q6H PRN (Reason: nausea and vomiting) Qty: 10 0RF amoxicillin-pot clavulanate 875-125 mg tablet 1 tab PO BID 10 Days Qty: 20 0RF Continued multivitamin [Daily Multi-Vitamin] Tablet 1 tab PO DAILY alendronate 70 mg tablet 70 mg PO QWEEK Qty: 15 3RF calcium carbonate-vitamin D3 [Calcium 600 with Vitamin D3] 600 mg-12.5 mcg (500 unit) capsule 1 cap PO BID Metamucil 3.4 gram/5.4 gram powder 1 tbsp PO DAILY PRN Rx Instructions: mix into at least 8 oz of water or juice before administering ascorbic acid (vitamin C) 1,000 mg capsule 1 g PO DAILY PRN omeprazole 20 mg capsule,delayed release(DR/EC) 20 mg PO DAILY Qty: 90 0RF Discharge Instructions Instructions: Diverticulitis (DC) Additional Instructions: As we discussed, your labs and exam are quite reassuring. Your imaging shows uncomplicated diverticulitis. As you have had issues with antibiotics in the past and new research suggest that you do not need to use antibiotics to treat diverticulitis, we have decided to hold off at this point with plan for you to begin antibiotics should you develop any continued or worsening symptoms. I encourage you to follow-up with your primary care provider within the next week. You have been prescribed antibiotic in the event that pain does begin to increase. If you do begin this, please take the entire course. Please begin probiotic to help prevent any side effects. Liquid diet and soft diet may help recovery more quickly. Please call primary tomorrow to schedule follow-up appointment. If develop fever/chills, inability stay hydrated, increased pain or other new/worsening symptom please seek care urgently once again. Referrals: Sushila Silver NP [Primary Care Provider] - [facility] General Date/Time Provider Initiated Documentation: 06/27/24 12:06 . Limitations to Documentation: no limitations . Information obtained by: patient, family and RN notes reviewed . History of Present Illness 63 year old F presents to the emergency department with the chief complaint of Left lower quadrant pain, described as moderate and similar to prior episodes (History of diverticulitis), Quality is described as aching, and is localized to the abdomen. Patient reports no radiation. Patient started experiencing this day(s) and it has been constant. No relieving factors improve symptom(s), No exacerbating factors reported . Patient notes fever/chills and nausea/vomiting; denies chest pain, cough, headaches, loss of appetite, rash and shortness of breath. Patient did receive the following treatments prior to arrival, none Related Data Home Medications ?Medication ?Instructions ?Recorded ?Confirmed multivitamin (Daily Multi-Vitamin 1 tab PO DAILY 04/07/23 06/27/24 tablet) calcium 600 mg (as 1 cap PO BID 05/07/23 06/27/24 carbonate)-vitamin D3 12.5 mcg (500 unit) capsule (Calcium with Vit D3) ascorbic acid (vitamin C) 1,000 mg 1 g PO DAILY PRN 04/06/24 06/27/24 capsule psyllium husk 3.4 gram/5.4 gram 1 tbsp PO DAILY PRN 04/06/24 06/27/24 oral powder (Metamucil) alendronate 70 mg tablet 70 mg PO QWEEK #15 tabs 06/05/24 06/27/24 omeprazole 20 mg capsule,delayed 20 mg PO DAILY #90 caps 06/20/24 06/27/24 release amoxicillin 875 mg-potassium 1 tab PO BID 10 days #20 tabs 06/27/24 clavulanate 125 mg tablet ondansetron 4 mg disintegrating 4 mg PO Q6H PRN nausea and 06/27/24 tablet vomiting #10 tabs Previous Rx's ?Medication ?Instructions ?Recorded alendronate 70 mg tablet 70 mg PO QWEEK #15 tabs 06/05/24 omeprazole 20 mg capsule,delayed 20 mg PO DAILY #90 caps 06/20/24 release amoxicillin 875 mg-potassium 1 tab PO BID 10 days #20 tabs 06/27/24 clavulanate 125 mg tablet ondansetron 4 mg disintegrating 4 mg PO Q6H PRN nausea and 06/27/24 tablet vomiting #10 tabs Allergies Allergy/AdvReac Type Severity Reaction Status Date / Time No Known Allergies Allergy Verified 06/27/24 11:10 General Stated Complaint: Abd Prob UZMA: 3 Review of Systems Constitutional Constitutional: Reports as per HPI, Denies chills and Denies fatigue Cardiovascular Cardiovascular: Reports as per HPI, Denies chest pain and Denies dyspnea Respiratory Respiratory: Reports as per HPI, Denies cough and Denies dyspnea Gastrointestinal Gastrointestinal: Reports as per HPI Musculoskeletal Musculoskeletal: Reports as per HPI and Denies back pain Integumentary/Breasts Skin/Breast: Reports as per HPI and Denies rash Neurologic Neurologic: Reports as per HPI Endocrine Endocrine: Denies fatigue Exam Const General: cooperative, healthy appearing, comfortable, no acute distress and well developed Nutritional Appearance: average body habitus and well nourished Orientation: alert and awake HENMT Head: normal to inspection Mouth: moist mucous membranes Resp Effort & Inspection: normal respiratory effort, able to speak in complete sentences and no respiratory distress Auscultation: clear to auscultation bilaterally, no rales, no rhonchi and no wheezes Cardio Rate: regular rate Rhythm: regular rhythm Heart Sounds: S1 normal and S2 normal GI Inspection: normal to inspection Palpation: soft, no hepatosplenomegaly, not firm, no guarding, no hernias, no masses, no pulsatile masses and tender in the LLQ Back/Spine/Pelvis Back: no CVA tenderness Skin General skin exam: no rashes or lesions noted Trauma: no lacerations or abrasions Neuro General: patient alert and patient awake Cognition: normal cognition Speech: speech normal Gait: normal gait Course Vital Signs Vital signs: Vital Signs Temperature 36.6 C 06/27/24 11:08 Pulse 81 06/27/24 11:08 Respiratory Rate 18 06/27/24 11:08 Blood Pressure 117/75 06/27/24 11:08 Pulse Oximetry 98 06/27/24 11:08 Temperature 36.6 C 06/27/24 11:08 Temperature Source Temporal Artery Scan 06/27/24 11:08 Pulse 81 06/27/24 11:08 Respiratory Rate 18 06/27/24 11:08 Respiratory Effort Normal, Non-Labored 06/27/24 11:11 Blood Pressure 117/75 06/27/24 11:08 Blood Pressure Position Sitting 06/27/24 11:08 Pulse Oximetry 98 06/27/24 11:08 Oxygen Delivery Method Room Air 06/27/24 11:08 Oxygen Flow Rate 0 06/27/24 11:08 Medical Decision Making Patient is a pleasant 63-year-old female, accompanied by significant other with chief complaint of lower abdominal pain that began yesterday. She reports that she does have a history of diverticulitis, last had that at this 1 year ago and reports that at that point she did have some complications and was treated with antibiotics. She has had routine colonoscopies, last of which was a few months ago and she reports that this was normal. She states that she felt like she may have had a fever yesterday. No fever today. Currently afebrile. States she has had some nausea but no vomiting. Has been able to keep down fluids and p.o. intake. Past surgical history significant for hysterectomy. States that she did not have bowel movement this morning. Normal bowel movement yesterday. on exam, patient appears nontoxic. She is hemodynamically stable. Abdominal exam shows some Lower abdominal tenderness, spread throughout but more pronounced on the left side. No guarding or evidence to suggest peritoneal findings. She has 2+ distal pulses. Active bowel sounds. No CVA tenderness. Normal cardiac and pulmonary exam. Will obtain CT scan to evaluate for potential diverticulitis. Patient describes a fairly complicated course when she had diverticulitis last year prompting me to feel that repeat imaging is warranted as despite her not having any peritoneal findings on exam. Will have open any antibiotics. Given the fluid shortage, holding off on fluids. Will obtain baseline labs. Labs reviewed. No leukocytosis. Stable H&H. CMP without any significant abnormality. She does have some blood in her urine. Discussed this with the patient, potentially associated with the diverticulitis but also encouraged her to follow-up with primary care imaging was reviewed by radiologist showing uncomplicated diverticulitis of the distal sigmoid. Discussed this with the patient and her family. She has had difficulty with antibiotics in the past and has had fairly significant diarrhea. This, coupled with the new literature showing no antibiotics is appropriate recommendation, I do feel that holding off antibiotics at this point is appropriate. However, I did encourage her to have a soft or liquid diet. We discussed use of probiotic. Will do the watch and wait approach to antibiotics I have prescribed this for her in the event that symptoms worsen. As she was having some nausea, will prescribe her ODT Zofran so that she has this in the event that it returns. Strict return precautions were discussed Tha did encourage that she follow- up with primary care for reevaluation. All of her questions and concerns were addressed and she is in agreement this plan. This documentation was generated using [employer] dictation system, please disregard any oddities of phrase or misspellings. Quality:SDOH Health Related Social Needs: No Data to Display PFSH All Active Problems (Updated 06/27/24 @ 15:28 by AURELIANO Agrawal) Diverticulitis (Chronic) Bicuspid aortic valve (Chronic) ECHO 2023 with mild aortic stenosis Aortic stenosis (Chronic) Osteoporosis (Chronic) Fosamax started 2022 Osteopenia (Chronic) Hyperlipidemia (Chronic) Osteoarthritis of both knees (Chronic) Vitamin D deficiency (Chronic) Diverticulosis of colon (Chronic) Trigger finger, right ring finger (Chronic) Medical History (Updated 06/27/24 @ 15:28 by AURELIANO Agrawal) Acute diverticulitis (~03/2023) Surgical History History of colonoscopy (~05/2023) S/P FROILAN (total abdominal hysterectomy) Right ovary remains Family History Mother Breast cancer Postmenopausal Father , 93 Lymphoma Prostate cancer Kidney malignancy Skin cancer Brother Diabetes Brother No problems noted. Brother No problems noted. Brother No problems noted. Brother No problems noted. Sister Hypothyroidism Sister No problems noted. Maternal Grandfather No problems noted. Maternal Grandmother No problems noted. Paternal Grandfather No problems noted. Paternal Grandmother No problems noted. Daughter Celiac disease Social History Smoking/Tobacco Use Status: Never Second Hand Exposure: No Smoking risk assessment performed?: Yes Alcohol Intake: current Alcohol Intake frequency: holidays/special occasions only Alcohol type: wine Drug use: Never Substance use type: does not use Counseling provided: none Caregiver/Support person: No Household members: family Housing: house Communication Needs: None Do you need help understanding health information?: Never current occupation: Retired Pets and animals: Yes Pets and animals: cat(s) Sexually active: No Do you think of yourself as: straight/heterosexual Current gender identity: female What is your relationship status?: How often do you talk on the phone with friends or family?: three or more times per week How often do you get together with friends or relatives?: three or more times per week How often do you attend confucianist or christian services?: decline to answer Do you belong to any clubs or organized social groups?: yes Panel score (0-1 are the most socially isolated patients): 2 What type of physical activity do you participate in: other Details: Glider Duration: 30-45 minutes/day Frequency: 3-4 times per week Bing/Jehovah'S Witness: Taoist Special bing needs: Yes (Last Rites) Seatbelt use: always Helmet use: No Drive intox or ride w/intox commercial driver: No Do you feel safe at home: Yes Do you feel safe in your relationship?: Yes Female Reproductive History Menstrual Menopause type: surgical
[2024-06-27 12:22] LABS: Abs Immature Grans 0.03 10^3/uL (0.0-0.06); Absolute Basophil Count 0.03 10^3/uL (0.0-0.2); Absolute Eosinophil Count 0.05 10^3/uL (0.0-0.7); Absolute Lymphocyte Count 1.33 10^3/uL (1.2-3.4); Absolute Neutrophil Count 8.22 10^3/uL (1.2-6.7); Basophils % 0.3 %; Eosinophils % 0.5 %; HGB 12.6 g/dL (11.2-15.7); Immature Grans % 0.3 %; Lymphocytes % 12.6 %; MCH 29.2 pg (27.0-33.0); MCHC 32.3 % (32.0-36.0); MCV 91 fL (80-95); MPV 9.7 fL (8.0-11.0); Monocytes % 8.5 %; Neutrophils % 77.8 %; Platelet Count 175 10^3/uL (130-400); RBC 4.31 10^6/uL (3.93-5.22); RDW 12.5 % (11.7-14.6); RDW-SD 41.7 fL; WBC 10.56 10^3/uL (4.4-10.8)
[2024-06-27 12:34] LABS: Albumin 3.6 g/dL (3.4-5.0); Bilirubin, Total 1.07 mg/dL (0.2-1.0); CREATININE 0.9 mg/dL (0.55-1.02); Calcium 8.9 mg/dL (8.5-10.1); Chloride 104 mmol/L (98-107); Estimated GFR 71.39 (mL/min/1.73m2); Glucose 94 mg/dL (74-106); Magnesium 2.1 mg/dL (1.8-2.4); Potassium 3.7 mmol/L (3.5-5.1); Total Protein 7.7 g/dL (6.4-8.2)
--- NOTE | 2024-06-27 13:00 | DI.CT_ITS ---
Exam(s) CT ABDOMEN PELVIS W EXAM: CT ABDOMEN PELVIS W CLINICAL HISTORY: LLQ pain. TECHNIQUE: Imaging Protocol: Axial computed tomography images with coronal and sagittal reformatted images were created and reviewed CONTRAST MATERIAL: Intravenous: Omnipaque 350 Contrast volume:75 ml Oral: no COMPARISON: CT CT ABDOMEN PELVIS W from 03/12/2023 FINDINGS: ABDOMEN and PELVIS: Lung Bases: No acute findings. Liver: Normal density. No suspicious mass. Gallbladder and biliary tract: There are few small stones noted at the dependent portion of the gallb ladder. No wall thickening. No biliary dilation. Pancreas: Normal density. No abnormal calcifications or inflammatory process. No evidence of mass. Spleen: Normal. Kidneys: Normal size, contour and axis. No radiodense stones. No obstructive uropathy. Stable bilat eral renal cysts. No suspicious masses seen. Adrenal glands: No masses seen. Vasculature: Abdominal aorta non-dilated. Soft tissues: Unremarkable. Bladder: No gross wall thickening. No calculi.No focal mass. Bowel: No obstruction. Diverticulosis noted of the descending and sigmoid colon. Severe wall thick ening of the distal with surrounding inflammation consistent with diverticulitis. No visible abscess . Sigmoid appendix normal. Peritoneal cavity: Trace fluid in region of diverticulitis. No focal collection. No mesenteric infla mmatory response. Bones: Degenerative changes again noted in the lower lumbar spine. Reproductive organs: Status post hysterectomy. Lymph nodes: No pathologically enlarged lymph nodes. IMPRESSION:: Acute diverticulitis involving the distal sigmoid. No abscess or perforation. RADIATION DOSE DELIVERED: Total DLP DATA REPOSITORY: All CT scans at this facility are submitted to the National Radiology Data Registry (NRDR) Dose Index Registry (DIR) with the [employer] (ACR). RADIATION OPTIMIZATION: All CT scans at this facility use at least one of these dose optimization te chniques: automated exposure control; mA and/or kV adjustment per patient size (includes targeted exa ms where dose is matched to clinical indication); or iterative reconstruction.
[2024-06-27 13:42] LABS: Bilirubin Negative (Negative); Blood Trace-intact (Negative); Clarity Clear (Clear); Glucose Negative (Negative); Ketones 15 mg/dL (Negative); Leukocyte Esterase Negative (Negative); Nitrite Negative (Negative); Urobilinogen 0.2 mg/dL (Up to 0.2); pH 7.5 (5-8)
[2024-06-27 13:58] LABS: Bacteria Few HPF (Negative); C & S Indicated? No; Casts Negative LPF (Negative); Crystals Negative HPF (Negative); Epithelial Cells Rare HPF (Negative); Mucus Moderate (Negative); Other Cells Negative (Negative); WBC 0-2 HPF (0-5)
[2024-06-27 14:18] LABS: ALT 19 U/L (14-59); AST 15 U/L (15-37); Alkaline Phosphatase 88 U/L (46-116); Anion Gap 10.2 mmol/L (3-11); BUN 18 mg/dL (7-18); CO2 25.8 mmol/L (21.0-32.0); Sodium 140 mmol/L (136-145)
[2024-06-27] MEDS: Omnipaque 350 MG/ML 100 ML BTL IJ (14:41)
[2024-06-27] MEDS: Normal Saline - Diluent 50 ML VIAL IJ (14:42)
[2024-06-27 15:43] VITALS: BP 133/57; PULSE 85; RESP 18; O2SAT 99
== END 2024-06-27 15:43 | disposition home or self-care (01) ==
PROVIDERS: Emergency Provider Physician Assistant; PCP Nurse Practitioner Family
DX: R10.32 Left lower quadrant pain (principal); K57.92 Diverticulitis of intestine, part unspecified, without perforation or abscess without bleeding
CPT/HCPCS: 36415; 80053; 99285; 74177; 81003; 81015; 83735; 85025; 99284; J3490

== ENCOUNTER 2024-07-17 22:59 | Emergency (ER) | payer OTHER, SELFPAY ==
[2024-07-17] VITALS (9 sets, daily range): BP systolic 166–172; BP diastolic 68–73; PULSE 46–65; RESP 10–18; TEMP 36.6; O2SAT 96–100
--- NOTE | 2024-07-17 23:00 | RT.EKG_ITS ---
APPROVED REPORT Exam: Resting ECG Reason for Exam: abd/chest pain Patient Location: E HR:69 bpm ECG Measurements Heart Rate 69 AXIS DC 185 P 59 QRSd 96 QRS 70 QT 421 T 60 QTc 453 Conclusion Sinus rhythm...normal P axis, V-rate 60- 99, poor baseline secondary to tremor, no obvious pattern i njury ischemia
--- NOTE | 2024-07-17 23:34 | ED.GENADUL_ITS ---
Discharge Plan Disposition Patient Disposition: Home Condition: Improving Discharge Details Chief Complaint: Nausea/Vomit/Diar Clinical Impression: Gastroenteritis, Vasovagal near-syncope Primary Care Provider: Sushila Silver ED Provider: Franco Metcalf Home Meds and New Rx's Prescriptions: No Action multivitamin [Daily Multi-Vitamin] Tablet 1 tab PO DAILY alendronate 70 mg tablet 70 mg PO QWEEK Qty: 15 3RF calcium carbonate-vitamin D3 [Calcium 600 with Vitamin D3] 600 mg-12.5 mcg (500 unit) capsule 1 cap PO BID Metamucil 3.4 gram/5.4 gram powder 1 tbsp PO DAILY PRN Rx Instructions: mix into at least 8 oz of water or juice before administering [facility] 10 billion cell -200 mg capsule 200 cap PO DAILY ascorbic acid (vitamin C) 1,000 mg capsule 1 g PO DAILY PRN omeprazole 20 mg capsule,delayed release(DR/EC) 20 mg PO DAILY Qty: 90 0RF Discharge Instructions Instructions: Viral gastroenteritis in adults Additional Instructions: Your symptoms have improved here in the emergency room with fluids and medications that help treat nausea and fevers. I would expect you to recover quite quickly from this event, as typically GI symptoms are self-limited and usually resolve within 24 to 48 hours. You may have some ongoing intermittent diarrhea as infections of your GI tract will sometimes damage to the lining of your small intestines and cause you to have poor absorption for a few days after the initial symptoms have resolved. This is the time period where things seem to go right through you. Get rest and drink plenty of fluids to stay hydrated. Restart your diet with things that are easy to digest such as toast, crackers, rice, apples, bananas, and broth based soups. If you tolerate this diet for 12 to 24 hours, you can restart your normal diet. Follow-up with your regular primary care doctor for reevaluation and further management, especially if symptoms not improving with this care plan. You can always return to the ER for any new concerns or sudden changes in your health which you feel require emergency medical attention. Discharge Data Discharge Physician: Franco Metcalf [facility] General Date/Time Provider Initiated Documentation: 07/17/24 23:07 . HPI Narrative: The patient is a 63-year-old female, with a past medical history significant for dysphagia and gastroesophageal reflux disease, recently diagnosed and treated with oral antibiotics for diverticulitis at the end of last month, presents to the emergency department this evening complaining of a sudden onset of right sided crampy abdominal discomfort with nausea, vomiting, the urge to defecate, and dizziness with near syncope that began at approximately 8 PM this evening while she was at home. The patient reports that she has been having some intermittent chills and hot flashes since that time as well. The patient denies any other recent illnesses such as runny nose, sore throat, cough, headaches, shortness of breath, or chest pain. The patient denies any recent sick contacts. The family did eat home canned fiddle heads tonight for dinner, but most of the family ate the dish and no one else was ill. Related Data Home Medications ?Medication ?Instructions ?Recorded ?Confirmed multivitamin (Daily Multi-Vitamin 1 tab PO DAILY 04/07/23 07/17/24 tablet) calcium 600 mg (as 1 cap PO BID 05/07/23 07/17/24 carbonate)-vitamin D3 12.5 mcg (500 unit) capsule (Calcium with Vit D3) ascorbic acid (vitamin C) 1,000 mg 1 g PO DAILY PRN 04/06/24 07/17/24 capsule psyllium husk 3.4 gram/5.4 gram 1 tbsp PO DAILY PRN 04/06/24 07/17/24 oral powder (Metamucil) alendronate 70 mg tablet 70 mg PO QWEEK #15 tabs 06/05/24 07/17/24 omeprazole 20 mg capsule,delayed 20 mg PO DAILY #90 caps 06/20/24 07/17/24 release Lactobacillus rhamnosus GG 10 200 cap PO DAILY 07/03/24 07/17/24 billion cell-inulin 200 mg capsule ([facility]) Previous Rx's ?Medication ?Instructions ?Recorded alendronate 70 mg tablet 70 mg PO QWEEK #15 tabs 06/05/24 omeprazole 20 mg capsule,delayed 20 mg PO DAILY #90 caps 06/20/24 release Allergies Allergy/AdvReac Type Severity Reaction Status Date / Time No Known Allergies Allergy Verified 07/17/24 23:32 General Stated Complaint: Nausea/Vomit/Diar UZMA: 3 Exam Const General: cooperative, no acute distress and anxious Resp Effort & Inspection: normal respiratory effort and able to speak in complete sentences Auscultation: clear to auscultation bilaterally Cardio Jugular venous pressure: no JVD Rate: regular rate Rhythm: regular rhythm Heart Sounds: S1 normal and S2 normal GI Inspection: normal to inspection Palpation: soft, no hepatosplenomegaly and nontender Skin General skin exam: no rashes or lesions noted, turgor normal and pallor Neuro Cranial Nerves: CN's II-XI intact bilaterally Speech: speech normal Motor: muscle tone normal throughout and strength 5/5 throughout Sensory Exam: no sensory deficits noted Psych Mood: anxious mood Affect: normal affect Course Vital Signs Vital signs: Vital Signs Temperature 36.6 C 07/17/24 23:23 Pulse 61 07/17/24 23:23 Respiratory Rate 16 07/17/24 23:23 Blood Pressure 172/73 H 07/17/24 23:23 Pulse Oximetry 99 07/17/24 23:23 Temperature 36.6 C 07/17/24 23:23 Temperature Source Temporal Artery Scan 07/17/24 23:23 Pulse 61 07/17/24 23:23 Respiratory Rate 16 07/17/24 23:23 Respiratory Effort Normal 07/17/24 23:27 Blood Pressure 172/73 H 07/17/24 23:23 Blood Pressure Position Supine 07/17/24 23:23 Pulse Oximetry 99 07/17/24 23:23 Oxygen Delivery Method Room Air 07/17/24 23:23 Oxygen Flow Rate 0 07/17/24 23:23 Pain Level 0 07/17/24 23:23 Medical Decision Making The patient was seen and examined. She appears in no distress and has relatively normal vital signs other than some initial hypertension on arrival to the room. The patient did have a near syncopal episode in the waiting room and it is not entirely clear if she was dizzy or lowered herself to the ground she was actively vomiting. The patient denies injury from the event. The patient tells me that she had relatively intense right sided abdominal cramping when she arrived in the emergency room but now reports that the symptoms have resolved. The patient continues to be nauseated but does not feel like she will vomit imminently. The patient still feels like she has chills at this time. I took a quick temperature which was 97.8 F. The patient will be hydrated here in the emergency room and given antiemetic medications. Laboratory workup will evaluate the patient for infection sources. This may simply represent a gastroenteritis with vasovagal near syncope from vomiting. Disposition will depend on improvement in symptoms in the emergency room with treatment and discovery of pathology on laboratory evaluation. 0130 - The patient was reevaluated and reports no symptoms at this time. She tells me that her abdominal pain and her nausea have resolved. The patient also tells me that she feels much less weak than she did when she was at home. The patient's laboratory workup was negative for any acute pathology including serial troponins x 2. The patient had relatively well-preserved electrolytes. Although she ultimately did not provide us with a urine sample, there were no urinary symptoms present. The patient will be given the remainder of her IV fluids here in the emergency room and discharged to follow-up with instructions to get rest and return to the ER for any new concerns or sudden changes in health. Quality:SDOH Health Related Social Needs: No Data to Display PFSH All Active Problems (Updated 07/18/24 @ 01:34 by Franco Metcalf MD) Vasovagal near-syncope (Acute) Gastroenteritis (Acute) Diverticulitis (Chronic 06/2024) Bicuspid aortic valve (Chronic) ECHO 2023 with mild aortic stenosis Aortic stenosis (Chronic) Osteoporosis (Chronic) Fosamax started 2022 Hyperlipidemia (Chronic) Osteoarthritis of both knees (Chronic) Vitamin D deficiency (Chronic) GERD (gastroesophageal reflux disease) (Chronic) Dysphagia (Acute) Diverticulosis of colon (Chronic) Trigger finger, right ring finger (Chronic) Medical History (Updated 07/18/24 @ 01:34 by Franco Metcalf MD) Acute diverticulitis (~03/2023) Surgical History History of colonoscopy (~05/2023) S/P FROILAN (total abdominal hysterectomy) Right ovary remains Family History Mother Breast cancer Postmenopausal Father , 93 Lymphoma Prostate cancer Kidney malignancy Skin cancer Brother Diabetes Brother No problems noted. Brother No problems noted. Brother No problems noted. Brother No problems noted. Sister Hypothyroidism Sister No problems noted. Maternal Grandfather No problems noted. Maternal Grandmother No problems noted. Paternal Grandfather No problems noted. Paternal Grandmother No problems noted. Daughter Celiac disease Social History Smoking/Tobacco Use Status: Never Second Hand Exposure: No Smoking risk assessment performed?: Yes Alcohol Intake: current Alcohol Intake frequency: holidays/special occasions only Alcohol type: wine Drug use: Never Substance use type: does not use Counseling provided: none Caregiver/Support person: No Household members: family Housing: house Communication Needs: None Do you need help understanding health information?: Never current occupation: Retired Pets and animals: Yes Pets and animals: cat(s) Sexually active: No Do you think of yourself as: straight/heterosexual Current gender identity: female What is your relationship status?: How often do you talk on the phone with friends or family?: three or more times per week How often do you get together with friends or relatives?: three or more times per week How often do you attend holiness or confucianism services?: decline to answer Do you belong to any clubs or organized social groups?: yes Panel score (0-1 are the most socially isolated patients): 2 What type of physical activity do you participate in: other Details: Glider Duration: 30-45 minutes/day Frequency: 3-4 times per week Bing/Hoahaoism: Episcopalian Special bing needs: Yes (Last Rit) Seatbelt use: always Helmet use: No Drive intox or ride w/intox 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
[2024-07-17 23:37] LABS: Abs Immature Grans 0.03 10^3/uL (0.0-0.06); Absolute Basophil Count 0.04 10^3/uL (0.0-0.2); Absolute Eosinophil Count 0.09 10^3/uL (0.0-0.7); Absolute Monocyte Count 0.51 10^3/uL (0.1-0.8); Absolute Neutrophil Count 5.17 10^3/uL (1.2-6.7); Basophils % 0.5 %; Eosinophils % 1.1 %; HCT 38.8 % (36.0-46.0); HGB 12.7 g/dL (11.2-15.7); Immature Grans % 0.4 %; Lymphocytes % 26.4 %; MCH 29.1 pg (27.0-33.0); MCHC 32.7 % (32.0-36.0); MCV 89 fL (80-95); MPV 9.6 fL (8.0-11.0); Monocytes % 6.4 %; Neutrophils % 65.2 %; Platelet Count 213 10^3/uL (130-400); RBC 4.37 10^6/uL (3.93-5.22); RDW 12.6 % (11.7-14.6); RDW-SD 41.1 fL; WBC 7.94 10^3/uL (4.4-10.8)
[2024-07-17] MEDS: ACETAMINOPHEN 1,000 MG/100 ML BAG 400 MG IVPB (23:46)
[2024-07-17] MEDS: Ondansetron 4 MG/2 ML VIAL IVP (23:46)
[2024-07-17] MEDS: Normal Saline 1,000 ML 1000 ML IV (23:48)
[2024-07-17 23:58] LABS: ALT 28 U/L (14-59); AST 19 U/L (15-37); Albumin 3.9 g/dL (3.4-5.0); Alkaline Phosphatase 85 U/L (46-116); Anion Gap 11.1 mmol/L (3-11); BUN 19 mg/dL (7-18); Bilirubin, Total 0.45 mg/dL (0.2-1.0); CO2 27.9 mmol/L (21.0-32.0); CREATININE 0.9 mg/dL (0.55-1.02); Calcium 9.3 mg/dL (8.5-10.1); Chloride 104 mmol/L (98-107); Estimated GFR 71.39 (mL/min/1.73m2); Glucose 138 mg/dL (74-106); Lipase 40 U/L (<78); Magnesium 1.9 mg/dL (1.8-2.4); Potassium 3.2 mmol/L (3.5-5.1); Sodium 143 mmol/L (136-145); Total Protein 7.7 g/dL (6.4-8.2); Troponin I 5 ng/L (<or=51)
[2024-07-18] VITALS (15 sets, daily range): BP systolic 121–132; BP diastolic 58–64; PULSE 53–68; RESP 13–18; O2SAT 97–99
[2024-07-18 00:20] LABS: COVID-19 PCR Negative (Negative); Influenza A PCR Negative (Negative); Influenza B PCR Negative (Negative); RSV PCR Negative (Negative)
[2024-07-18 00:21] LABS: Source Nasopharynx
[2024-07-18 01:22] LABS: Troponin I 10 ng/L (<or=51)
[2024-07-18 01:27] LABS: Bilirubin Negative (Negative); Blood Moderate (Negative); Clarity Clear (Clear); Glucose Negative (Negative); Ketones 15 mg/dL (Negative); Leukocyte Esterase Trace (Negative); Nitrite Negative (Negative); Specific Gravity 1.015 (1.005-1.025); Urobilinogen 0.2 mg/dL (Up to 0.2)
[2024-07-18 01:32] LABS: Bacteria Rare HPF (Negative); C & S Indicated? No; Casts Negative LPF (Negative); Crystals Negative HPF (Negative); Epithelial Cells Few HPF (Negative); Mucus Trace (Negative)
== END 2024-07-18 01:40 | disposition home or self-care (01) ==
PROVIDERS: Emergency Provider Emergency Medicine Emergency Medical Services; PCP Nurse Practitioner Family
DX: K52.9 Noninfective gastroenteritis and colitis, unspecified (principal); R55 Syncope and collapse; K21.9 Gastro-esophageal reflux disease without esophagitis
CPT/HCPCS: 36415; 80053; 83690; 87637; 93005; 96361; 96365; 96375; 99284; 81003; 81015; 83735; 84484; 85025; 93010; J0131; J2405

== ENCOUNTER 2025-03-20 17:01 | Outpatient (REF) | payer MEDICARE, SELFPAY | END 2025-03-20 17:02 | disposition home or self-care (01) | LOC: LBN 17:01 | PROVIDERS: PCP Nurse Practitioner Family; Visit Provider Family Medicine | DX: L98.9 Disorder of the skin and subcutaneous tissue, unspecified (principal) | CPT/HCPCS: 87077; 87070; 87186; 87205 ==

== ENCOUNTER → 2025-06-21 02:30 | Outpatient (CLI) | payer MEDICARE, SELFPAY ==
--- NOTE | 2025-06-21 11:57 | DI.DEXA_ITS ---
Exam(s) XR DEXA BONE DENSITY W/WO MINDY EXAM: XR DEXA BONE DENSITY W/WO MINDY CLINICAL HISTORY: reassess osteoporosis,postmenopausal status,z78.0,m81.0 TECHNIQUE: HoloPogoseat Horizon C densitometer analysis of left hip, lumbar spine and left forearm. Lateral survey image of the thoracic and lumbar spine. COMPARISON: CR XR DEXA BONE DENSITY W/WO MINDY from 02/19/2021 CR XR DEXA BONE DENSITY W/WO MINDY from 05/18/2023 FINDINGS: Lateral view of the thoracic and lumbar spine shows no evidence of compression fractures. Bone mineral density measurements of the lumbar spine correspond to a total T- score of -1.7, in the osteopenic range. This represents a 9.7 percent increase from 2022 and an 11.5 percent increase from 2020. Bone mineral density measurements of the left hip correspond to a total T-score of 0.4. This represents an 8.5 percent increase from 2022 and a 10.8 percent increase compared with 2020. The femoral neck T-score is -1.1, in the mildly osteopenic range. Theleft forearm bone mineral density measurements correspond to a T-score of the distal 3rd of -3.0, in the osteoporotic range. This is not significantly changed from priors. IMPRESSION: Osteopenia of the spine and hip. Osteoporosis of the forearm.
--- NOTE | 2025-06-21 12:20 | DI.MAMMO_ITS ---
Exam(s) MAMMO SCREENING EXAM: MAMMO SCREENING CLINICAL HISTORY: screening,z12.39. TECHNIQUE: Bilateral full field digital CC and MLO mammographic images were obtained with 3D tomosynthesis and utilizing computer aided detection (CAD). COMPARISON: Prior mammograms were reviewed. FINDINGS: There has been no significant change in the appearance and distribution of the fibroglandular tissue. There are no CAD designations. There are no new spiculated masses nor malignant appearing microcalcification groups. There is no significant architectural distortion nor skin thickening-retraction. IMPRESSION: No radiographic evidence of malignancy. BI-RADS Category 1 - Negative Breast Density - Category B - There are scattered areas of fibroglandular density. Breast density Category C or D implies that the patient has dense breast tissue. Dense breast tissue can make it harder to find cancer on a mammogram. Dense breast tissue is also associated with an increased risk of breast cancer. This information about the result of the mammogram report was provided to the patient to raise their awareness. Use this report when you speak with the patient about their risks for breast cancer, which includes their family history. At that time, you may recommend additional screening tests (Ultrasound or MRI) as these tests may add significant information. A negative radiographic report should not delay biopsy if a dominant or clinically suspicious mass is present. Up to ten percent of cancers are not identified on mammography. A negative report may reinforce clinical impression. Adenosis and dense breasts may obscure an underlying neoplasm. False positive reports average 6 to 10%. Patient will receive a letter notifying them of these results.
== END ==
PROVIDERS: PCP Nurse Practitioner Family; Visit Provider Nurse Practitioner Family
DX: Z12.31 Encounter for screening mammogram for malignant neoplasm of breast (principal); Z78.0 Asymptomatic menopausal state; M81.0 Age-related osteoporosis without current pathological fracture; R92.323 Mammographic fibroglandular density, bilateral breasts
CPT/HCPCS: 77063; 77067; 77080